=== PATIENT | female | born 1985 | race Caucasian/White ===

== ENCOUNTER 2022-06-12 15:14 | Emergency (ER) | payer BC, SELFPAY ==
[2022-06-12 15:16] VITALS: BP 133/65; PULSE 88; RESP 18; TEMP 36.6; O2SAT 99; BMI 24.0
--- NOTE | 2022-06-12 15:23 | EX.ED.UPPERE ---
HPI History of Present Illness HPI Narrative: Patient presents with injury to her left wrist that began after a fall last night. Patient states she fell backwards and put her hand out to catch her. Patient states her pain is mainly over the left wrist. Patient describes as aching. Patient states it is worse with movement. Patient states it is better with rest. Patient denies any paresthesias or weakness. Patient denies any head injury or loss of consciousness. Patient denies any other injuries. Chief Complaint: Upper Extremity Injury Informant: patient Occured/Mechanism Mechanism/Context: Yes fall Onset/Context/Timing Onset: Yesterday Context: Sudden Onset Timing: Continuous Quality of Pain: Aching Location: Left wrist Worsened by: Movement Relieved by: Rest Associated Symptoms Associated Symptoms: Negative for Parasthesia, Weakness or Loss of Funtion PFSH PFSH Medical History no medical history no medical history Allergy/AdvReac Type Severity Reaction Status Date / Time adhesive tape Allergy Hives Verified 06/12/22 15:15 Surgical History (Updated 06/12/22 @ 15:[address] Neo Hoyos DO) H/O section History of endometrial ablation History of mandibular surgery Hx of appendectomy Hx of cholecystectomy Social History Smoking Status: Never smoker ROS ROS ED Constitutional Constitutional ED: Denies chills or fever(s) Eyes Eyes: Denies blurry vision or change in vision ENT ENT ED: Denies rhinorrhea or sore throat Cardiovascular Cardiovascular: Denies chest pain or palpitations Respiratory/Chest Respiratory/Chest: Denies cough or dyspnea Gastrointestinal Gastrointestinal: Denies nausea or vomiting Genitourinary Genitourinary ED: Denies dysuria or hematuria Musculoskeletal Musculoskeletal: Denies back pain or neck pain Integumentary Denies abscess or rash Neurologic Neurologic: Denies headache(s) or weakness Allergic/Immunologic Allergic/Immunologic ED: Denies mouth swelling or urticaria EXAM Physical Exam Const Vital Signs: 06/12/22 15:16 Temperature 97.8 F Temperature Source Temporal Pulse Rate 88 Respiratory Rate 18 Blood Pressure 133/65 H Blood Pressure Mean 87 Pulse Ox 99 Oxygen Delivery Method Room Air Positive well nourished and well developed General Appearance ED: well developed and NAD HEENT Reports moist mucous membranes Neck full ROM and supple Extremity Extremity Narrative: There is tenderness with mild edema over the radial aspect of the left wrist. There is no obvious deformity. Range of motion was slightly limited in all motions of the left wrist secondary to pain. There is some pain with axial loading of the thumb and first metacarpal. There is mild tenderness over the anatomic snuffbox. Radial pulses are equal bilaterally. Sensation was intact to light touch in the radial, median, and ulnar areas. Strength is 5/5 in the radial, median, and ulnar areas. Neuro oriented x3, CN's II-XII intact bilaterally, moves all extremities, no focal motor deficits and no sensory deficits noted Sensorium / Orientation: alert Motor Exam: strength 5/5 throughout Psych mental status grossly normal MDM MDM MDM Narrative Medical decision making narrative: X series of the left wrist were obtained. There are 3 views. On my interpretation, there is no acute fracture or dislocation. There is no soft tissue swelling. Radiologist also interpreted the x-rays and agrees. Since the patient did have some tenderness over the radial aspect of her wrist, patient was given a thumb spica splint. Patient was instructed to take Tylenol or ibuprofen as needed for pain. Patient was instructed to ice and elevate the left wrist. Patient was advised that there could be an occult scaphoid fracture. Patient was instructed if she is still having pain in 1 to 2 weeks when she follows up that she may need a repeat x-ray. Patient was instructed return if worse in any way. Patient understood and was agreeable with the plan. All questions were answered. Procedures Upper Extremity Splints Upper Extremity Splint: Thumb Spica Splint Fabrication: Pre-fabricated Location: Left Discharge Plan Triage Chief Complaint: Upper Extremity Injury ED Provider: Neo Hoyos Dx/Rx/DC Orders Clinical Impression: Left wrist sprain, Fall Instructions: ED Wrist Sprain Primary Care Provider: Huong Wing,Out of Referrals: Huong Wing,Out of [Primary Care Provider] - 1-2 Weeks Disposition Disposition: Home, Self Care
--- NOTE | 2022-06-12 15:45 | RAD_ITS ---
INDICATION: Injury/Pain EXAMINATION/TECHNIQUE: X-RAY - LEFT XR Wrist 3 VIEWS COMPARISON: None. FINDINGS: SOFT TISSUES: No soft tissue swelling or gas. No radiopaque foreign body. BONES/JOINTS: No acute fracture or subluxation.. Normal alignment. Preservation of the joint space.. No sclerotic or destructive changes observed. RAD/Wrist min 3 Views IMPRESSION: Within normal limits examination. Electronically Signed: Luda Whittington MD at 15:59 EST ,
[2022-06-12 16:53] VITALS: BP 120/67; PULSE 71; RESP 15; O2SAT 98
== END 2022-06-12 16:53 | disposition home or self-care (01) ==
PROVIDERS: Emergency Provider Emergency Medicine; Visit Provider Emergency Medicine
DX: S63.92XA Sprain of unspecified part of left wrist and hand, initial encounter (principal); W19.XXXA Unspecified fall, initial encounter
CPT/HCPCS: 73110; 99283